=== PATIENT | female | born 1965 ===

== ENCOUNTER 2024-07-06 08:08 | Emergency (ER) | payer MEDICARE, MEDICAID, SELFPAY ==
[2024-07-06 08:12] VITALS: BP 148/66
--- NOTE | 2024-07-06 08:59 | EDRN ---
Elen HERNÁNDEZ in room w/ pt.
[2024-07-06 09:09] VITALS: BMI 15.1
--- NOTE | 2024-07-06 09:19 | EDRN ---
Atilio HERNÁNDEZ in room w/ pt at this time.
--- NOTE | 2024-07-06 09:32 | ED.GENMED ---
History of Present Illness
General
Chief Complaint: Ear Problem
Source: patient
Exam Limitations: none
Time Seen by Provider: 07/06/24 08:53
History of Present Illness
History of Present Illness:
59yoF with a history of autoimmune disease on methotrexate and chronic prednisone presenting for evaluation of left ear pain. Patient was seen by her PCP 3 days ago for the symptoms and was prescribed Cortisporin drops for an outer ear infection.
She has been using these drops without any improvement. She reports worsening pain over the past 24 hours and is now unable to hear from the ear. She also reports a headache and some dizziness. She denies any fevers. Patient has an appointment
with ENT but it is not scheduled until the end of the month.
Phy Exam
General Physical Exam
General Presentation: well appearing and no apparent distress
General Skin: warm and dry
General Habitus: normal
General Mental: alert
ENT Exam
ENT Exam: normocephalic and other (L ear: Debris and cerumen noted in the ear canal. Unable to visualize TM. +Tenderness on palpation of pinna. No mastoid erythema or swelling.)
Neurological Exam
Neurological Exam: alert
[place] Coma Scale
Eye Opening: Spontaneous
Verbal Response: Oriented
Motor Response: Obeys Commands
GCS Total Score: 15
Skin Exam
Skin Exam: normal color and warm/dry
Psychiatric Exam
Psychiatric Exam: normal mood/affect
Course
Orders/Labs/Results
Orders:
Orders
07/06/24 09:30
Ketorolac [Toradol] 30 mg IM NOW STA
Oxycodone/Acetaminophen [Percocet 5/325] 1 tablet PO NOW STA
Vital Signs
Initial and Last Documented VS:
Initial Vital Signs
Temp Pulse Resp BP Pulse Ox
98.5 F 78 18 148/66 100
07/06/24 08:12 07/06/24 08:12 07/06/24 08:12 07/06/24 08:12 07/06/24 08:12
Last Documented Vital Signs
Temp Pulse Resp BP Pulse Ox
98.5 F 65 18 139/87 99
07/06/24 08:12 07/06/24 10:02 07/06/24 10:02 07/06/24 10:02 07/06/24 10:02
MDM/Problems Addressed
Differential Diagnosis Includes:
59yoF here with L ear pain. On Cortisporin gtts without any improvement. Now c/o headache and dizziness. She is afebrile and non-toxic appearing. Debris noted in L ear canal and TM unable to be visualized. No clinical evidence of malignant otitis
externa or mastoiditis. Will switch drops to Ciprodex and add Augmentin as I am unable to r/o concomitant otitis media. Small amount of cerumen able to be removed with a curette. Advised f/u with PCP and ENT. ED return precautions discussed
including fevers. Patient discharged in stable condition.
*Critical Care Note
Total Time (30-74mins, 75-104mins- exclusive of procedures): Not Applicable
ED Attending Note
-
Portions of this chart may have been created with voice recognition software.� Occasional wrong word or��sound alike� substitutions may have occurred due to the inherent limitations of voice recognition software.
Discharge Plan
Departure
Patient Disposition: Home (Routine Discharge)
Date of Disposition: 07/06/24
Time of Disposition: 09:33
Patient with high blood pressure during this ER visit?: Yes
Discharge Problem:
Left otitis externa
Instructions: Outer Ear Infection (DC)
Prescriptions:
New
ciprofloxacin-dexamethasone 0.3-0.1 % drops,suspension
4 drp otic (ear) BID 7 Days Qty: 7.5 0RF
amoxicillin-pot clavulanate 875-125 mg tablet
1 tab PO BID Qty: 14 0RF
Referrals:
UNKNOWN - PT DOES,NOT KNOW [Family Provider] -
Sweta Simmons MD [Active] -
Activity Restrictions/Additional Instructions:
Switch antibiotic drops to Ciprodex and start taking Augmentin as prescribed.
Please follow-up with your family doctor and ENT. Return to the ER with any worsening symptoms or fevers.
Interventions
Interventions:
*Risk Screen - Suicide Last Done: 07/06/24 08:12
*General Assessment Last Done: 07/06/24 09:09
*Neglect/Abuse Screening Last Done: 07/06/24 09:09
*ED- Fall Risk Assessment Last Done: 07/06/24 09:09
*ED COVID-19 Vaccine History Last Done: 07/06/24 09:09
*Nursing Disposition Last Done: 07/06/24 10:02
Discharge Date and Time
Discharge Date/Time: 07/06/24 10:15
Print Language: MONGOLIAN
[2024-07-06] MEDS: PERCOCET 5/325 1 TABLET PO (10:00)
[2024-07-06 10:02] VITALS: BP 139/87
== END 2024-07-06 10:15 | disposition home or self-care (01) ==
LOC: EMR 08:08
PROVIDERS: EMERGENCY PHYSICIAN Emergency Medicine
DX: H60.92 Unspecified otitis externa, left ear (principal); R51.9 Headache, unspecified; R42 Dizziness and giddiness; R03.0 Elevated blood-pressure reading, without diagnosis of hypertension; M35.9 Systemic involvement of connective tissue, unspecified; Z79.52 Long term (current) use of systemic steroids; Z88.0 Allergy status to penicillin
CPT/HCPCS: 99283